=== PATIENT | female | born 1940 | race Two or more races ===

== ENCOUNTER 2020-11-01 14:46 | Emergency (ER) | payer OTHER ==
[~2020-11-01] VITALS: Ht 157.5 cm; Wt 70.8 kg
[~2020-11-01 14:46] MED LIST: ELIQUIS5 MG PO; LEVSIN/SL0.125 MG SL; PEPCID40 MG PO
== END 2020-11-01 19:00 | disposition home or self-care (01) ==
LOC: ER 14:46
DX: L03.114 Cellulitis of left upper limb (principal); S60.222A Contusion of left hand, initial encounter; X58.XXXA Exposure to other specified factors, initial encounter; Y93.89 Activity, other specified; Y92.89 Other specified places as the place of occurrence of the external cause; Y99.8 Other external cause status

== ENCOUNTER 2021-07-09 11:34 | Outpatient (CLI) | payer OTHER | END 2021-07-09 11:43 | disposition home or self-care (01) | LOC: TOM 11:34 | PROVIDERS: ATTEND Psychiatry & Neurology Neurology | DX: E04.1 Nontoxic single thyroid nodule (principal); R22.1 Localized swelling, mass and lump, neck ==

== ENCOUNTER 2021-08-10 09:13 | Outpatient (CLI) | payer OTHER | END 2021-08-10 10:41 | disposition home or self-care (01) | LOC: SONOGRAMA 09:13 | PROVIDERS: ATTEND Pathology Anatomic Pathology & Clinical Pathology | DX: D34 Benign neoplasm of thyroid gland (principal); E07.89 Other specified disorders of thyroid; E04.8 Other specified nontoxic goiter ==

== ENCOUNTER 2022-08-12 11:09 | Outpatient (CLI) | payer OTHER | END 2022-08-12 11:14 | disposition home or self-care (01) | LOC: RAD 11:09 | DX: S72.141A Displaced intertrochanteric fracture of right femur, initial encounter for closed fracture (principal) ==

== ENCOUNTER 2023-02-09 11:37 | Outpatient (CLI) | payer OTHER | END 2023-02-09 11:49 | disposition home or self-care (01) | LOC: RAD 11:37 | DX: S72.141A Displaced intertrochanteric fracture of right femur, initial encounter for closed fracture (principal) ==

== ENCOUNTER 2023-07-12 12:59 | Outpatient (CLI) | payer OTHER | END 2023-07-12 13:02 | disposition home or self-care (01) | LOC: SONOGRAMA 12:59 | PROVIDERS: ATTEND Surgery Surgical Oncology | DX: E04.1 Nontoxic single thyroid nodule (principal) ==

== ENCOUNTER 2024-08-02 10:33 | Outpatient (CLI) | payer OTHER | END 2024-08-02 10:34 | disposition home or self-care (01) | LOC: SONOGRAMA 10:33 | PROVIDERS: ATTEND Surgery Surgical Oncology | DX: E04.1 Nontoxic single thyroid nodule (principal) ==

== ENCOUNTER 2025-03-26 11:25 | Outpatient (CLI) | payer OTHER | END 2025-03-26 11:33 | disposition home or self-care (01) | LOC: SONOGRAMA 11:25 | PROVIDERS: ATTEND Surgery Surgical Oncology | DX: E04.1 Nontoxic single thyroid nodule (principal) ==